=== PATIENT | female | born 1990 | race African-American/Black ===

== ENCOUNTER 2017-03-11 12:12 | Emergency (ER) | payer BC ==
[2017-03-11 12:19] VITALS: BP 118/65
== END 2017-03-11 12:50 | disposition left against medical advice (07) ==
LOC: ER 12:12
DX: Z53.21 Procedure and treatment not carried out due to patient leaving prior to being seen by health care provider (principal)

== ENCOUNTER 2017-03-14 16:18 | Emergency (ER) | payer BC, MEDICAID ==
--- NOTE | 2017-03-14 17:25 | ER Document Report ---
ED Medical Screen (RME) - General TRAVEL OUTSIDE OF THE [place] IN LAST 30 DAYS: No <OSVALDO COBOS - Last Filed: 03/14/17 17:24> <NATIVIDAD ROBERTSON - Last Filed: 03/14/17 18:21> - General Chief Complaint: Abdominal Pain Stated Complaint: ABDOMINAL PAIN Time Seen by Provider: 03/14/17 17:12 Notes: 27-year-old female with last menses 02/04/2017 presents with 1 week of lower abdominal cramping. She has had 3 positive tests at home. She is having no vaginal bleeding, vomiting, diarrhea, dysuria or hematuria. She has had some nausea. (OSVALDO COBOS) I have greeted and performed a rapid initial assessment of this patient. A comprehensive ED assessment and evaluation of the patient, analysis of test results and completion of the medical decision making process will be conducted by additional ED providers. (NATIVIDAD ROBERTSON) - Related Data Allergies/Adverse Reactions: No Known Allergies Allergy (Verified 03/14/17 17:13) Past Medical History Renal/ Medical History: Denies: Hx Peritoneal Dialysis Psychiatric Medical History: Reports: Hx Attention Deficit Hyperactivity Disorder Traumatic Medical History: Reports: Hx Fractures - Immunizations Hx Diphtheria, Pertussis, Tetanus Vaccination: Yes <OSVALDO COBOS - Last Filed: 03/14/17 17:24> Physical Exam <OSVALDO COBOS - Last Filed: 03/14/17 17:24> <NATIVIDAD ROBERTSON - Last Filed: 03/14/17 18:21> - Vital signs Vitals: Temp Pulse Resp BP Pulse Ox 98.1 F 84 20 118/72 99 03/14/17 16:45 03/14/17 16:45 03/14/17 16:45 03/14/17 16:45 03/14/17 16:45 - Notes Notes: Exam shows heart to be normal, lungs normal, no peritoneal signs (OSVALDO COBOS) Course - Laboratory Result Diagrams: 03/14/17 17:20 <NAITVIDAD ROBERTSON - Last Filed: 03/14/17 18:21> - Vital Signs Vital signs: Temp Pulse Resp BP Pulse Ox 98.1 F 84 20 118/72 99 03/14/17 16:45 03/14/17 16:45 03/14/17 16:45 03/14/17 16:45 03/14/17 16:45 - Laboratory Laboratory results interpreted by me: 03/14/17 03/14/17 17:20 17:20 WBC 10.8 H Urine Urobilinogen 2.0 H Scribe Documentation - Scribe Written by Scribe:: Yossi Alatorre 03/14/17 18:20 acting as scribe for :: [place] <NATIVIDAD ROBERTSON - Last Filed: 03/14/17 18:21>
[2017-03-14 18:08] LABS: ABSOLUTE EOSINOPHILS # (AUTO) 0.1 10^3/uL (0.0-0.6); ABSOLUTE LYMPHOCYTES (AUTO) 2.4 10^3/uL (0.5-4.7); ABSOLUTE MONOCYTES (AUTO) 0.8 10^3/uL (0.1-1.4); ABSOLUTE NEUT (AUTO) 7.5 10^3/uL (1.7-8.2); BASOPHILS % (AUTO) 0.2 % (0-2); HEMATOCRIT 40.5 % (36.0-47.0); HEMOGLOBIN 13.5 g/dL (12.0-15.5); MEAN CORPUSCULAR HEMOGLOBIN 30.8 pg (27.0-33.4); MEAN CORPUSCULAR HGB CONC 33.4 g/dL (32.0-36.0); MEAN CORPUSCULAR VOLUME 92 fl (80-97); MONOCYTES % (AUTO) 7.2 % (3-13); RED BLOOD COUNT 4.39 10^6/uL (3.72-5.28); RED CELL DISTRIBUTION WIDTH 13.5 % (11.5-14.0); SEGMENTED NEUTROPHILS % (AUTO) 69.6 % (42-78); WHITE BLOOD COUNT 10.8 10^3/uL (4.0-10.5)
[2017-03-14 18:10] LABS: APPEARANCE,URINE SLIGHTLY-CLOUDY; BILIRUBIN,URINE NEGATIVE (NEGATIVE); GLUCOSE, URINE NEGATIVE (NEGATIVE); KETONES,URINE NEGATIVE (NEGATIVE); LEUKOCYTE ESTERASE,URINE NEGATIVE (NEGATIVE); NITRITE,URINE NEGATIVE (NEGATIVE); PROTEIN,URINE NEGATIVE (NEGATIVE); URINE SPECIFIC GRAVITY 1.031
--- NOTE | 2017-03-14 18:25 | ER Document Report ---
ED GI/ - General Mode of Arrival: Ambulatory Information source: Patient TRAVEL OUTSIDE OF THE [place] IN LAST 30 DAYS: No - HPI Patient complains to provider of: Abdominal pain <YAA NAVA - Last Filed: 03/14/17 21:08> <MARIELA ZHONG - Last Filed: 03/14/17 22:36> - General Chief Complaint: Abdominal Pain Stated Complaint: ABDOMINAL PAIN Time Seen by Provider: 03/14/17 17:12 Notes: Patient is a 27 year old female that presents to the emergency department today with complaints of nausea and vomiting. Patient states she is but she is unsure how she is. Patient states her LMP was February 05. Patient states she has had mild suprapubic abdominal pain. (YAA NAVA) - Related Data Allergies/Adverse Reactions: No Known Allergies Allergy (Verified 03/14/17 17:13) Past Medical History - General Information source: Patient - Social History Smoking Status: Unknown if Ever Smoked Cigarette use (# per day): No Frequency of alcohol use: None Drug Abuse: None Lives with: Family Family History: Reviewed & Not Pertinent Patient has suicidal ideation: No Patient has homicidal ideation: No Psychiatric Medical History: Reports: Hx Attention Deficit Hyperactivity Disorder Traumatic Medical History: Reports: Hx Fractures Surgical Hx: Negative - Immunizations Hx Diphtheria, Pertussis, Tetanus Vaccination: Yes <YAA NAVA - Last Filed: 03/14/17 21:08> Review of Systems - Review of Systems Constitutional: No symptoms reported EENT: No symptoms reported Cardiovascular: No symptoms reported Respiratory: No symptoms reported Gastrointestinal: See HPI, Abdominal pain, Nausea, Vomiting Genitourinary: No symptoms reported Female Genitourinary: See HPI, Musculoskeletal: No symptoms reported Skin: No symptoms reported Hematologic/Lymphatic: No symptoms reported Neurological/Psychological: No symptoms reported -: Yes All other systems reviewed and negative <YAA NAVA - Last Filed: 03/14/17 21:08> Physical Exam <YAA NAVA - Last Filed: 03/14/17 21:08> - Vital signs Interpretation: Normal - General General appearance: Appears well, Alert - HEENT Head: Normocephalic, Atraumatic Eyes: Normal Pupils: PERRL - Respiratory Respiratory status: No respiratory distress Chest status: Nontender Breath sounds: Normal Chest palpation: Normal - Cardiovascular Rhythm: Regular Heart sounds: Normal auscultation Murmur: No - Abdominal Inspection: Normal Distension: No distension Bowel sounds: Normal Organomegaly: No organomegaly - Back Back: Normal, Nontender - Extremities General upper extremity: Normal inspection, Nontender, Normal color, Normal ROM , Normal temperature General lower extremity: Normal inspection, Nontender, Normal color, Normal ROM , Normal temperature, Normal weight bearing. No: Auor[place]'s sign - Neurological Neuro grossly intact: Yes Cognition: Normal Orientation: AAOx4 [place]ollhouse Coma Scale Eye Opening: Spontaneous [place] Coma Scale Verbal: Oriented Jana Coma Scale Motor: Obeys Commands Jana Coma Scale Total: 15 Speech: Normal Motor strength normal: LUE, RUE, LLE, RLE Sensory: Normal - Psychological Associated symptoms: Normal affect, Normal mood - Skin Skin Temperature: Warm Skin Moisture: Dry Skin Color: Normal <MARIELA ZHONG - Last Filed: 03/14/17 22:36> - Vital signs Vitals: Temp Pulse Resp BP Pulse Ox 98.1 F 84 20 118/72 99 03/14/17 16:45 03/14/17 16:45 03/14/17 16:45 03/14/17 16:45 03/14/17 16:45 - Notes Notes: Physical Exam: General: Alert, appears well. HEENT: Normocephalic. Atraumatic. PERRL. Extraocular movements intact. Oropharynx clear. Neck: Supple. Non-tender. Respiratory: No respiratory distress. Clear and equal breath sounds bilaterally. Cardiovascular: Regular rate and rhythm. Abdominal: Left pelvic tenderness with palpation. No distension. Normal Bowel Sounds. Back: Non-tender. No deformity or step off. Extremities: Moves all four extremities. Upper extremities: Normal inspection. Normal ROM. Lower extremities: Normal inspection. No edema. Normal ROM. Neurological: Normal cognition. AAOx4. Normal speech. Psychological: Normal affect. Normal Mood. Skin: Warm. Dry. Normal color. 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 No evidence for ectopic . Patient is comfortable and appears well. No urinary symptoms. She has been given a copy of her blood work and ultrasound and is to follow-up with obstetrics. Understands and agrees with plan. No pain at this time. Stable for discharge. (MARIELA ZHONG) - Vital Signs Vital signs: Temp Pulse Resp BP Pulse Ox 98.4 F 79 20 115/68 99 03/14/17 20:40 03/14/17 20:40 03/14/17 20:40 03/14/17 20:40 03/14/17 20:40 - Laboratory Laboratory results interpreted by me: 03/14/17 03/14/17 03/14/17 17:20 17:20 17:20 WBC 10.8 H Beta HCG, Quant 5729.30 H Urine Urobilinogen 2.0 H Discharge <YAA NAVA - Last Filed: 03/14/17 21:08> <MARIELA ZHONG - Last Filed: 03/14/17 22:36> - Discharge Clinical Impression: Early stage of , Pelvic pain Condition: Stable Disposition: HOME, SELF-CARE Instructions: Pelvic Pain ([facility]), ([facility]) Forms: Return to Work Referrals: [facility] [Provider Group] - Follow up as needed Scribe Attestation: 03/14/17 22:36 I personally performed the services described in the documentation, reviewed and edited the documentation which was dictated to the scribe in my presence, and it accurately records my words and actions. (MARIELA ZHONG) Scribe Documentation - Scribe Written by Yossi:: Yossi Plummer, 03/14/[id number] acting as scribe for :: Marciano <YAA NAVA - Last Filed: 03/14/17 21:08>
--- NOTE | 2017-03-14 20:07 | RADIOLOGY REPORT (SQ) ---
EXAM DESCRIPTION: U/S OB TRANSVAG W/DOPPLER COMPLETED DATE/TIME: 03/14/2017 7:48 pm REASON FOR STUDY: Pelvic pain, COMPARISON: None. TECHNIQUE: Transvaginal static and realtime grayscale images acquired of the pelvis. Additional velasquez cted spectral and color Doppler images recorded. All images stored on PACs. [facility] [place] LIMITATIONS: None. FINDINGS: UTERUS: No masses. No anomalies. GESTATIONAL SAC: Yes. YOLK SAC: Yes. POLE: No. RIGHT ADNEXA: There is a 1.7 x 2.3 x 1.5 cm cyst. No adnexal free fluid. No adnexal masses. LEFT ADNEXA: Normal ovary with normal vascular flow. No adnexal free fluid. No adnexal masses. FREE FLUID: There is minimal free fluid in the right adnexa. OTHER: There is a small hypoechoic area adjacent to the gestational sac consistent with a small subch orionic bleed. This measures 0.9 x 0.6 x 0.5 cm. IMPRESSION: Probable early intrauterine gestation. No heart activity this time. Followup beta HCG and ultrasound is recommended. Trimester of : First - 0 to 13 weeks. TECHNICAL DOCUMENTATION: JOB ID: [id number] [employer]- All Rights Reserved
[2017-03-14 20:49] VITALS: BP 115/68
== END 2017-03-14 20:40 | disposition home or self-care (01) ==
LOC: ER 16:18
DX: R10.2 Pelvic and perineal pain (principal); R10.9 Unspecified abdominal pain; R11.2 Nausea with vomiting, unspecified; Z33.1 Pregnant state, incidental
CPT/HCPCS: 36415; 76817; 81001; 84702; 85025; 93976; 99284

== ENCOUNTER 2017-04-06 16:45 | Emergency (ER) | payer BC, MEDICAID ==
[2017-04-06 17:34] LABS: ABSOLUTE EOSINOPHILS # (AUTO) 0.1 10^3/uL (0.0-0.6); ABSOLUTE LYMPHOCYTES (AUTO) 2.1 10^3/uL (0.5-4.7); ABSOLUTE MONOCYTES (AUTO) 0.7 10^3/uL (0.1-1.4); BASOPHILS % (AUTO) 0.2 % (0-2); HEMATOCRIT 38.9 % (36.0-47.0); HEMOGLOBIN 12.9 g/dL (12.0-15.5); HGB HCT DIFFERENCE -0.2; LYMPHOCYTES % (AUTO) 18.9 % (13-45); MEAN CORPUSCULAR HEMOGLOBIN 30.7 pg (27.0-33.4); MEAN CORPUSCULAR HGB CONC 33.2 g/dL (32.0-36.0); MEAN CORPUSCULAR VOLUME 92 fl (80-97); MONOCYTES % (AUTO) 6.2 % (3-13); RED BLOOD COUNT 4.21 10^6/uL (3.72-5.28); RED CELL DISTRIBUTION WIDTH 13.6 % (11.5-14.0); SEGMENTED NEUTROPHILS % (AUTO) 73.7 % (42-78); WHITE BLOOD COUNT 10.9 10^3/uL (4.0-10.5)
[2017-04-06 17:46] LABS: ALANINE AMINOTRANSFERASE 27 U/L (9-52); ALBUMIN 4.1 g/dL (3.5-5.0); ALKALINE PHOSPHATASE 76 U/L (38-126); ANION GAP 11 (5-19); APPEARANCE,URINE SLIGHTLY-CLOUDY; ASPARTATE AMINO TRANSFERASE 20 U/L (14-36); BILIRUBIN,DIRECT 0.3 mg/dL (0.0-0.4); BILIRUBIN,TOTAL 0.4 mg/dL (0.2-1.3); BILIRUBIN,URINE NEGATIVE (NEGATIVE); BLOOD UREA NITROGEN 9 mg/dL (7-20); CALCIUM 9.1 mg/dL (8.4-10.2); CARBON DIOXIDE 23 mmol/L (22-30); CHLORIDE 103 mmol/L (98-107); CREATININE RESULT 0.71 mg/dL (0.52-1.25); GLUCOSE 85 mg/dL (75-110); GLUCOSE, URINE NEGATIVE (NEGATIVE); KETONES,URINE NEGATIVE (NEGATIVE); LEUKOCYTE ESTERASE,URINE NEGATIVE (NEGATIVE); NITRITE,URINE NEGATIVE (NEGATIVE); PROTEIN,URINE NEGATIVE (NEGATIVE); SODIUM 136.6 mmol/L (137-145); URINE SPECIFIC GRAVITY 1.018; UROBILINOGEN,URINE NEGATIVE mg/dL (<2.0)
--- NOTE | 2017-04-06 19:03 | RADIOLOGY REPORT (SQ) ---
EXAM DESCRIPTION: U/S OB TRANSVAG W/DOPPLER COMPLETED DATE/TIME: 04/06/2017 6:51 pm REASON FOR STUDY: abd pain preg COMPARISON: None. TECHNIQUE: Transvaginal static and realtime grayscale images acquired of the pelvis. Additional velasquez cted spectral and color Doppler images recorded. All images stored on PACs. bHCG: Not available. LIMITATIONS: None. FINDINGS: FETUS: Living intrauterine . EGA: 8 week 6 day. ELMER: 11/10/2017. FHR: 157 beats per minute. SUBCHORIONIC BLEED: Yes. SIZE OF BLEED: 0.3 x 1.2 x 1.9 cm. UTERUS: No masses. No anomalies. CERVICAL LENGTH: 3.5 cm. Closed. RIGHT ADNEXA: Normal ovary with normal vascular flow. No adnexal free fluid. Simple cyst(s) measuring 2.0 cm. LEFT ADNEXA: Ovary not identified. No adnexal free fluid. No adnexal masses. FREE FLUID: None. OTHER: No other significant finding. IMPRESSION: LIVING INTRAUTERINE . EGA 8 WEEK 6 DAY. Trimester of : First - 0 to 13 weeks. TECHNICAL DOCUMENTATION: JOB ID: [id number] [employer]- All Rights Reserved
--- NOTE | 2017-04-06 19:17 | ER Document Report ---
ED General - General Chief Complaint: Pelvic Pain Stated Complaint: CRAMPING/ Time Seen by Provider: 04/06/17 16:56 TRAVEL OUTSIDE OF THE [place] IN LAST 30 DAYS: No - Related Data Allergies/Adverse Reactions: latex Allergy (Verified 04/06/17 16:51) Past Medical History - General Last Menstrual Period: 02/03/17 - Social History Smoking Status: Former Smoker Chew tobacco use (# tins/day): No Frequency of alcohol use: None Drug Abuse: None Family History: Reviewed & Not Pertinent Patient has suicidal ideation: No Patient has homicidal ideation: No Renal/ Medical History: Denies: Hx Peritoneal Dialysis Psychiatric Medical History: Reports: Hx Attention Deficit Hyperactivity Disorder Traumatic Medical History: Reports: Hx Fractures - Immunizations Hx Diphtheria, Pertussis, Tetanus Vaccination: Yes Physical Exam - Vital signs Vitals: Temp Pulse Resp BP Pulse Ox 99 F 70 24 H 127/74 H 99 04/06/17 16:51 04/06/17 16:51 04/06/17 16:51 04/06/17 16:51 04/06/17 16:51 Course - Vital Signs Vital signs: Temp Pulse Resp BP Pulse Ox 99 F 70 24 H 127/74 H 99 04/06/17 16:51 04/06/17 16:51 04/06/17 16:51 04/06/17 16:51 04/06/17 16:51 - Laboratory Result Diagrams: 04/06/17 17:13 04/06/17 17:13 Laboratory results interpreted by me: 04/06/17 04/06/17 17:13 17:13 WBC 10.9 H Sodium 136.6 L Beta HCG, Quant 987304.00 H Discharge - Discharge Clinical Impression: Qualifiers: Weeks of gestation: 8 weeks Qualified Code(s): Z3A.08 - 8 weeks gestation of Abdominal pain during Qualifiers: Trimester: first trimester Qualified Code(s): O26.891 - Other specified related conditions, first trimester; R10.9 - Unspecified abdominal pain Condition: Good Disposition: HOME, SELF-CARE Instructions: Abdominal Pain ([facility]), Pelvic Pain in ([facility]) Additional Instructions: Continue your vitamins follow-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 He may take the Reglan provided for very bad nausea. For nausea and vomiting during I recomment: Start with 10-12.5 mg of pyridoxine (vitamin B6) three times a day for 2 days. If not fully effective, Increase to 12.5 mg of pyridoxine four times a day for 2 days. If not fully effective, Increase to 25 mg of pyridoxine three times a day for 2 days. If not fully effective, Continue 25 mg pyridoxine 3 times a day, and add 12.5 mg of doxylamine before bedtime each day for 2 days. If not fully effective, Continue 25 mg pyridoxine 3 times a day, and take 12.5 mg of doxylamine twice a day. If not fully effective, Continue 25 mg pyridoxine 3 times a day, and take 12.5 mg of doxylamine three times a day. If not fully effective, Continue 25 mg pyridoxine 3 times a day, and 12.5 mg of doxylamine 3 times a day , while adding Emetrol, one to two tablespoons (15-30 cc) taken once or twice a day as needed. (Emetrol is an [id number] mixture of sugar syrups and phosphoric acid [phosphorylated carbohydrate solution]) that acts by soothing the actual wall of the gastrointestinal tract). If not fully effective, Consult with your doctor. Prescriptions: Metoclopramide HCl [Reglan] 5 mg PO Q6 #20 tablet Forms: Return to Work
--- NOTE | 2017-04-06 19:19 | ER Document Report ---
ED General - General Chief Complaint: Pelvic Pain Stated Complaint: CRAMPING/ Time Seen by Provider: 04/06/17 16:56 TRAVEL OUTSIDE OF THE [place] IN LAST 30 DAYS: No - HPI Patient complains to provider of: Abdominal pain in Notes: Patient coming in for evaluation of abdominal pain and . Patient is a with no comp occasions and her prior pregnancies states that she is having abdominal cramping. Patient states that she is approximately 6-8 weeks . Patient states compliance with vitamins. Denies any fevers chills nausea vomiting dysuria - Related Data Allergies/Adverse Reactions: latex Allergy (Verified 04/06/17 16:51) Past Medical History - General Last Menstrual Period: 02/03/17 - Social History Smoking Status: Former Smoker Chew tobacco use (# tins/day): No Frequency of alcohol use: None Drug Abuse: None Family History: Reviewed & Not Pertinent Patient has suicidal ideation: No Patient has homicidal ideation: No Renal/ Medical History: Denies: Hx Peritoneal Dialysis Psychiatric Medical History: Reports: Hx Attention Deficit Hyperactivity Disorder Traumatic Medical History: Reports: Hx Fractures - Immunizations Hx Diphtheria, Pertussis, Tetanus Vaccination: Yes Review of Systems - Review of Systems Constitutional: No symptoms reported EENT: No symptoms reported Cardiovascular: No symptoms reported Respiratory: No symptoms reported Gastrointestinal: Abdominal pain Genitourinary: No symptoms reported Female Genitourinary: No symptoms reported Musculoskeletal: No symptoms reported Skin: No symptoms reported Hematologic/Lymphatic: No symptoms reported Neurological/Psychological: No symptoms reported -: Yes All other systems reviewed and negative Physical Exam - Vital signs Vitals: Temp Pulse Resp BP Pulse Ox 99 F 70 24 H 127/74 H 99 04/06/17 16:51 04/06/17 16:51 04/06/17 16:51 04/06/17 16:51 04/06/17 16:51 Interpretation: Normal - General General appearance: Appears well, Alert - HEENT Head: Normocephalic, Atraumatic Eyes: Normal Pupils: PERRL - Respiratory Respiratory status: No respiratory distress Chest status: Nontender Breath sounds: Normal Chest palpation: Normal - Cardiovascular Rhythm: Regular Heart sounds: Normal auscultation Murmur: No - Abdominal Inspection: Normal Distension: No distension Bowel sounds: Normal Tenderness: Nontender Organomegaly: No organomegaly - Back Back: Normal, Nontender - Extremities General upper extremity: Normal inspection, Nontender, Normal color, Normal ROM , Normal temperature General lower extremity: Normal inspection, Nontender, Normal color, Normal ROM , Normal temperature, Normal weight bearing. No: Aurora's sign - Neurological Neuro grossly intact: Yes Cognition: Normal Orientation: AAOx4 Jana Coma Scale Eye Opening: Spontaneous Dewey Coma Scale Verbal: Oriented Dewey Coma Scale Motor: Obeys Commands Jana Coma Scale Total: 15 Speech: Normal Motor strength normal: LUE, RUE, LLE, RLE Sensory: Normal - Psychological Associated symptoms: Normal affect, Normal mood - Skin Skin Temperature: Warm Skin Moisture: Dry Skin Color: Normal Course - Re-evaluation Re-evalutation: 04/06/17 19:19 Ultrasound confirms IUP with a small sub-chorionic bleed. Lab was unrevealing critical pathology. Patient will be discharged home to follow-up with her primary care physician. The patient presents with abdominal pain without signs of peritonitis or other life-threatening or serious etiology. The patient appears stable for discharge and has been instructed to return immediately if the symptoms worsen in any way, or in 8-12hr if not improved for re-evaluation. The patient has been instructed to return if the symptoms worsen or change in any way. - Vital Signs Vital signs: Temp Pulse Resp BP Pulse Ox 99 F 70 24 H 127/74 H 99 04/06/17 16:51 04/06/17 16:51 04/06/17 16:51 04/06/17 16:51 04/06/17 16:51 - Laboratory Result Diagrams: 04/06/17 17:13 04/06/17 17:13 Laboratory results interpreted by me: 04/06/17 04/06/17 17:13 17:13 WBC 10.9 H Sodium 136.6 L Beta HCG, Quant 654754.00 H Discharge - Discharge Clinical Impression: Qualifiers: Weeks of gestation: 8 weeks Qualified Code(s): Z3A.08 - 8 weeks gestation of Abdominal pain during Qualifiers: Trimester: first trimester Qualified Code(s): O26.891 - Other specified related conditions, first trimester Condition: Good Disposition: HOME, SELF-CARE Instructions: Abdominal Pain ([facility]), Pelvic Pain in ([facility]) Additional Instructions: Continue your 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 He may take the Reglan provided for very bad nausea. For nausea and vomiting during I recomment: Start with 10-12.5 mg of pyridoxine (vitamin B6) three times a day for 2 days. If not fully effective, Increase to 12.5 mg of pyridoxine four times a day for 2 days. If not fully effective, Increase to 25 mg of pyridoxine three times a day for 2 days. If not fully effective, Continue 25 mg pyridoxine 3 times a day, and add 12.5 mg of doxylamine before bedtime each day for 2 days. If not fully effective, Continue 25 mg pyridoxine 3 times a day, and take 12.5 mg of doxylamine twice a day. If not fully effective, Continue 25 mg pyridoxine 3 times a day, and take 12.5 mg of doxylamine three times a day. If not fully effective, Continue 25 mg pyridoxine 3 times a day, and 12.5 mg of doxylamine 3 times a day , while adding Emetrol, one to two tablespoons (15-30 cc) taken once or twice a day as needed. (Emetrol is an [id number]-xgibjii mixture of sugar syrups and phosphoric acid [phosphorylated carbohydrate solution]) that acts by soothing the actual wall of the gastrointestinal tract). If not fully effective, Consult with your doctor. Prescriptions: Metoclopramide HCl [Reglan] 5 mg PO Q6 #20 tablet Forms: Return to Work
[2017-04-06 19:20] VITALS: BP 127/72
== END 2017-04-06 19:15 | disposition home or self-care (01) ==
LOC: ER 16:45
DX: O26.891 Other specified pregnancy related conditions, first trimester (principal); R10.9 Unspecified abdominal pain; O20.8 Other hemorrhage in early pregnancy; Z3A.08 8 weeks gestation of pregnancy; Z79.899 Other long term (current) drug therapy; Z87.891 Personal history of nicotine dependence
CPT/HCPCS: 36415; 76817; 80053; 81001; 84702; 85025; 93976; 99284

== ENCOUNTER → 2017-04-20 | Outpatient (CLI) | payer MEDICAID ==
--- NOTE | 2017-04-20 17:44 | RADIOLOGY REPORT (SQ) ---
EXAM DESCRIPTION: U/S [id number] TRNABD 1GES W/ODOP COMPLETED DATE/TIME: 04/20/2017 4:48 pm REASON FOR STUDY: ENCOUNTER FOR SUPERVISON OF OTHER NORMAL PREGANCNY, FIRST TRIMESTER Z34.[address] SUPRVSN OF NORMAL , FIRST TRIM COMPARISON: None. TECHNIQUE: Transabdominal static and realtime grayscale images acquired of the pelvis. Additional se lected spectral and color Doppler images recorded. All images stored on PACs. bHCG: Not applicable. LIMITATIONS: None. FINDINGS: FETUS: EGA: 11 week 2 day. ELMER: 11/07/2017. EFW: Not applicable. FHR: 178 beats per minute. PAULY: Adequate amount. CERVICAL LENGTH: 3.8 cm. Closed. UTERUS: No masses. RIGHT ADNEXA: Normal ovary with normal vascular flow. No adnexal free fluid. 2.1 cm simple cyst. LEFT ADNEXA: Ovary not identified. No adnexal free fluid. No adnexal masses. FREE FLUID: None. OTHER: No other significant finding. IMPRESSION: LIVING INTRAUTERINE . ESTIMATED GESTATIONAL AGE:11 WEEK 2 DAY. Trimester of : First trimester - 0 to 13 weeks. TECHNICAL DOCUMENTATION: JOB ID: [id number] [employer]- All Rights Reserved
== END ==
LOC: RAD 15:13
PROVIDERS: ATTEND Nurse Practitioner Women's Health
DX: Z34.81 Encounter for supervision of other normal pregnancy, first trimester (principal)
CPT/HCPCS: 76801

== ENCOUNTER 2017-05-11 12:14 | Emergency (ER) | payer BC, MEDICAID ==
[2017-05-11] MEDS ORDERED: METOCLOPRAMIDE HCL INJ/PF 10 MG/2 ML SDV IV ONE (12:41)
[2017-05-11] MEDS ORDERED: ACETAMINOPHEN 325 MG TABLET PO ONE (12:41)
[2017-05-11] MEDS ORDERED: DIPHENHYDRAMINE HCL 50 MG/ML VIAL IV ONE (12:41)
[2017-05-11] MEDS ORDERED: NORMAL SALINE 1000 ML 1,000 ML IV ONE (12:41)
--- NOTE | 2017-05-11 12:43 | ER Document Report ---
ED Headache - General Chief Complaint: Headache Stated Complaint: NECK PAIN,HEADACHE Time Seen by Provider: 05/11/17 12:30 Mode of Arrival: Ambulatory Information source: Patient Notes: Patient presents complaining of high pain off and on that she describes as a pressure for the past year. Patient reports pain to the lateral sides of her neck for the past 2 months and reports constant headache for the past month. Patient states that she has taken Tylenol at home without improvement of her symptoms. Patient does report some light sensitivity and nausea. Patient denies any fever, vomiting, or head injury. Patient denies any history of IV drug use. Patient states that she has seen her blow machine tender starch spraying regarding the pressure sensation in her eyes that she has had for the past year and she was told she had a normal exam with normal intraocular pressure. Patient states she simply got tired of her symptoms today which prompted her to come in. Patient is currently 4 months and followed by [facility]. TRAVEL OUTSIDE OF THE [place] IN LAST 30 DAYS: No - HPI Patient complains to provider of: Headache Onset: Other - 1 month Onset was: Gradual Timing: Still present Quality of pain: Achy Pain Level: 3 Associated symptoms: Photophobia. 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 denies: Fever EENT: Eye pain Cardiovascular: No symptoms reported. denies: Dizziness Respiratory: No symptoms reported. denies: Cough, Short of breath Gastrointestinal: No symptoms reported. denies: Vomiting Genitourinary: No symptoms reported Female Genitourinary: No symptoms reported Musculoskeletal: Neck pain Skin: No symptoms reported. denies: Rash Hematologic/Lymphatic: No symptoms reported Neurological/Psychological: Headaches. denies: Weakness Physical Exam - Vital signs Vitals: Temp Pulse Resp BP Pulse Ox 98.4 F 80 14 123/70 99 05/11/17 12:16 05/11/17 12:16 05/11/17 12:16 05/11/17 12:16 05/11/17 12:16 - General General appearance: Appears well, Alert In distress: None - HEENT Head: Normocephalic, Atraumatic Eyes: Normal Extraocular movements intact: Yes Eyelashes: Normal Pupils: PERRL Ears: Normal External canal: Normal Tympanic membrane: Normal Nasal: Normal Mouth/Lips: Normal Mucous membranes: Normal Neck: Supple, Other - bilat SCM muscle tenderness/spasm. No: Lymphadenopathy, Meningismus - Respiratory Respiratory status: No respiratory distress Chest status: Nontender Breath sounds: Normal - Cardiovascular Rhythm: Regular Heart sounds: S1 appreciated, S2 appreciated Murmur: No - Back Back: Normal, Nontender. No: Vertebra tenderness - Extremities General upper extremity: Normal inspection, Normal ROM General lower extremity: Normal inspection, Normal ROM - Neurological Neuro grossly intact: Yes Cognition: Normal Orientation: AAOx4 Jana Coma Scale Eye Opening: Spontaneous Jana Coma Scale Verbal: Oriented [place] Coma Scale Motor: Obeys Commands Jana Coma Scale Total: 15 Speech: Normal Cranial nerves: Normal Cerebellar coordination: Normal, Heel-savage, Finger-nose rhombey. No: Gait ataxia Motor strength normal: LUE, RUE, LLE, RLE - Psychological Associated symptoms: Normal affect, Normal mood - Skin Skin Temperature: Warm Skin Moisture: Dry Skin Color: Normal Course - Re-evaluation Re-evalutation: 05/11/17 15:02 Resting with eyes closed, arouses easily to voice. Patient denies any headache pain at this time. - Vital Signs Vital signs: Temp Pulse Resp BP Pulse Ox 97.5 F 101 H 20 114/75 100 05/11/17 13:18 05/11/17 13:38 05/11/17 13:18 05/11/17 13:38 05/11/17 13:38 - Diagnostic Test Radiology reviewed: Reports reviewed Discharge - Discharge Clinical Impression: Qualifiers: Weeks of gestation: unspecified Qualified Code(s): Z34.90 - Encounter for supervision of normal , unspecified, unspecified trimester Headache Qualifiers: Headache type: unspecified Headache chronicity pattern: unspecified pattern Intractability: not intractable Qualified Code(s): R51 - Headache Condition: Stable Disposition: HOME, SELF-CARE Instructions: Use of Diphenhydramine, Reglan ([facility]), Headache ([facility]) Additional Instructions: Return immediately for any new or worsening symptoms Followup with your primary care provider, call tomorrow to make a followup appointment Follow-up with your primary doctor for further evaluation of chronic daily headaches Tylenol [id number] as directed for pain relief Forms: Return to Work Referrals: ANITA MURPHY MD [Primary Care Provider] - Follow up tomorrow
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
[2017-05-11 15:22] VITALS: BP 114/75
== END 2017-05-11 15:22 | disposition home or self-care (01) ==
LOC: ER 12:14
DX: Z34.90 Encounter for supervision of normal pregnancy, unspecified, unspecified trimester (principal); R51 Headache; M54.2 Cervicalgia
CPT/HCPCS: 99284; 96361; 96374; 96375; 70450; J1200; J2765; J7030

== ENCOUNTER 2017-06-09 19:18 | Emergency (ER) | payer OTHER, BC, MEDICAID ==
[2017-06-09] MEDS ORDERED: ACETAMINOPHEN 325 MG TABLET PO ONE (20:28)
[2017-06-09] MEDS ORDERED: ACETAMINOPHEN 325 MG TABLET ONE (20:33)
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
== END 2017-06-09 21:38 | disposition home or self-care (01) ==
LOC: ER 19:18
DX: O9A.212 Injury, poisoning and certain other consequences of external causes complicating pregnancy, second trimester (principal); S69.91XA Unspecified injury of right wrist, hand and finger(s), initial encounter; V49.40XA Driver injured in collision with unspecified motor vehicles in traffic accident, initial encounter; O99.89 Other specified diseases and conditions complicating pregnancy, childbirth and the puerperium; M79.641 Pain in right hand; Z3A.18 18 weeks gestation of pregnancy; Z91.040 Latex allergy status
CPT/HCPCS: 99283

== ENCOUNTER 2017-09-13 17:53 | Outpatient (CLI) | payer BC ==
[2017-09-13 18:20] LABS: AMORPHOUS SEDIMENT,URINE TRACE /HPF; APPEARANCE,URINE SLIGHTLY-CLOUDY; BILIRUBIN,URINE NEGATIVE (NEGATIVE); GLUCOSE, URINE 50 mg/dL (NEGATIVE); KETONES,URINE NEGATIVE (NEGATIVE); LEUKOCYTE ESTERASE,URINE TRACE (NEGATIVE); NITRITE,URINE NEGATIVE (NEGATIVE); PROTEIN,URINE NEGATIVE (NEGATIVE)
[2017-09-13 18:33] LABS: URINE BARBITURATES SCREEN NEGATIVE; URINE METHADONE SCREEN NEGATIVE; URINE OPIATES LOW NEGATIVE; URINE PHENCYCLIDINE SCREEN NEGATIVE
== END 2017-09-13 18:59 | disposition home or self-care (01) ==
LOC: LC 17:53
PROVIDERS: ATTEND Obstetrics & Gynecology
PROC: 4A1HXCZ Monitoring of Products of Conception, Cardiac Rate, External Approach (ICD-10-PCS; principal; 2017-09-13)
DX: O47.03 False labor before 37 completed weeks of gestation, third trimester (principal); Z3A.31 31 weeks gestation of pregnancy
CPT/HCPCS: 80307; 81001

== ENCOUNTER 2017-10-24 18:02 | Outpatient (CLI) | payer MEDICAID ==
[2017-10-24 18:33] LABS: APPEARANCE,URINE SLIGHTLY-CLOUDY; BILIRUBIN,URINE NEGATIVE (NEGATIVE); COLOR,URINE YELLOW; GLUCOSE, URINE 50 mg/dL (NEGATIVE); KETONES,URINE NEGATIVE (NEGATIVE); LEUKOCYTE ESTERASE,URINE MODERATE (NEGATIVE); NITRITE,URINE NEGATIVE (NEGATIVE); PROTEIN,URINE NEGATIVE (NEGATIVE); URINE SPECIFIC GRAVITY 1.008
[2017-10-24 18:36] LABS: AMNISURE (ROM) NEGATIVE (NEGATIVE)
[2017-10-24 18:48] LABS: URINE AMPHETAMINES SCREEN NEGATIVE; URINE BARBITURATES SCREEN NEGATIVE; URINE BENZODIAZEPINES SCREEN NEGATIVE; URINE COCAINE SCREEN NEGATIVE; URINE MARIJUANA (THC) SCREEN NEGATIVE; URINE METHADONE SCREEN NEGATIVE; URINE PHENCYCLIDINE SCREEN NEGATIVE
--- NOTE | 2017-10-24 18:49 | Non Stress Test Report ---
Non Stress Test Datetime Report Generated by CPN: 10/24/2017 18:48 DEMOGRAPHIC EGA NST: 37.4 INDICATION Indication for Study: Ordered by Provider MONITORING Monitor Explained: Monitor Explained; Test Explained; Patient Verbalized Understanding Time on Monitor: 10/24/2017 18:17 Time off Monitor: 10/24/2017 18:45 NST Duration: 28 NST INTERVENTIONS NST Interventions: PO Hydration Physician Notified NST: Dr. Jimenez BABY A: [id number] BABY A Movement : Present Contraction Frequency : 1 FHR Baseline : 145 Accelerations : 15X15 Decelerations : None Variability : Moderate 6-25bpm NST Review: Meets Criteria for Reactive NST NST Review and Verified By : Beverly Oconnor RN NST Results: Reactive NST REPORT Report Trigger: Send Report
== END 2017-10-24 18:53 | disposition home or self-care (01) ==
LOC: LC 18:02
PROVIDERS: ATTEND Student in an Organized Health Care Education/Training Program
PROC: 4A1HXCZ Monitoring of Products of Conception, Cardiac Rate, External Approach (ICD-10-PCS; principal; 2017-10-24)
DX: O47.1 False labor at or after 37 completed weeks of gestation (principal); Z3A.37 37 weeks gestation of pregnancy
CPT/HCPCS: 59025; 80307; 81001; 84112

== ENCOUNTER 2017-10-25 17:33 | Outpatient (CLI) | payer MEDICAID ==
[2017-10-25 18:12] LABS: AMNISURE (ROM) NEGATIVE (NEGATIVE)
[2017-10-25 18:12] LABS: APPEARANCE,URINE CLOUDY; BILIRUBIN,URINE NEGATIVE (NEGATIVE); COLOR,URINE YELLOW; GLUCOSE, URINE 50 mg/dL (NEGATIVE); KETONES,URINE NEGATIVE (NEGATIVE); LEUKOCYTE ESTERASE,URINE LARGE (NEGATIVE); NITRITE,URINE NEGATIVE (NEGATIVE); PROTEIN,URINE NEGATIVE (NEGATIVE); URINE SPECIFIC GRAVITY 1.015
[2017-10-25 18:28] LABS: URINE AMPHETAMINES SCREEN NEGATIVE; URINE BARBITURATES SCREEN NEGATIVE; URINE BENZODIAZEPINES SCREEN NEGATIVE; URINE COCAINE SCREEN NEGATIVE; URINE MARIJUANA (THC) SCREEN NEGATIVE; URINE METHADONE SCREEN NEGATIVE; URINE PHENCYCLIDINE SCREEN NEGATIVE
--- NOTE | 2017-10-25 19:30 | Non Stress Test Report ---
Non Stress Test Datetime Report Generated by CPN: 10/25/2017 19:29 DEMOGRAPHIC EGA NST: 37.5 INDICATION Indication for Study: Ordered by Provider MONITORING Monitor Explained: Monitor Explained; Test Explained; Patient Verbalized Understanding Time on Monitor: 10/25/2017 17:52 Time off Monitor: 10/25/2017 18:54 NST Duration: 62 NST INTERVENTIONS NST Interventions: PO Hydration; Reposition Patient Physician Notified NST: A.Emmel, CNM BABY A: [id number] BABY A Movement : Present Contraction Frequency : x1 FHR Baseline : 145 Accelerations : 15X15 Decelerations : None Variability : Moderate 6-25bpm NST Review: Meets Criteria for Reactive NST NST Review and Verified By : Krishna Diallo RN NST Results: Reactive NST REPORT Report Trigger: Send Report
== END 2017-10-25 19:02 | disposition home or self-care (01) ==
LOC: LC 17:33
PROVIDERS: ATTEND Obstetrics & Gynecology Gynecology
PROC: 4A1HXCZ Monitoring of Products of Conception, Cardiac Rate, External Approach (ICD-10-PCS; principal; 2017-10-25)
DX: O47.1 False labor at or after 37 completed weeks of gestation (principal); Z3A.37 37 weeks gestation of pregnancy
CPT/HCPCS: 59025; 80307; 81005; 84112

== ENCOUNTER 2017-10-29 20:31 | Outpatient (CLI) | payer MEDICAID ==
[2017-10-29 21:08] LABS: APPEARANCE,URINE CLEAR; BILIRUBIN,URINE NEGATIVE (NEGATIVE); COLOR,URINE YELLOW; GLUCOSE, URINE NEGATIVE (NEGATIVE); KETONES,URINE NEGATIVE (NEGATIVE); LEUKOCYTE ESTERASE,URINE NEGATIVE (NEGATIVE); NITRITE,URINE NEGATIVE (NEGATIVE); PROTEIN,URINE NEGATIVE (NEGATIVE); URINE SPECIFIC GRAVITY 1.008; UROBILINOGEN,URINE NEGATIVE mg/dL (<2.0)
[2017-10-29 21:24] LABS: URINE AMPHETAMINES SCREEN NEGATIVE; URINE BARBITURATES SCREEN NEGATIVE; URINE BENZODIAZEPINES SCREEN NEGATIVE; URINE COCAINE SCREEN NEGATIVE; URINE MARIJUANA (THC) SCREEN NEGATIVE; URINE METHADONE SCREEN NEGATIVE; URINE PHENCYCLIDINE SCREEN NEGATIVE
== END 2017-10-29 21:58 | disposition home or self-care (01) ==
LOC: LC 20:31
PROVIDERS: ATTEND Student in an Organized Health Care Education/Training Program
PROC: 4A1HXCZ Monitoring of Products of Conception, Cardiac Rate, External Approach (ICD-10-PCS; principal; 2017-10-29)
DX: O47.1 False labor at or after 37 completed weeks of gestation (principal); R11.2 Nausea with vomiting, unspecified; Z3A.38 38 weeks gestation of pregnancy
CPT/HCPCS: 80307; 81001

== ENCOUNTER 2017-10-30 21:52 | Inpatient (IN) | payer MEDICAID ==
--- NOTE | 2017-10-30 21:55 | Non Stress Test Report ---
Non Stress Test Datetime Report Generated by CPN: 10/30/2017 21:55 DEMOGRAPHIC EGA NST: 38.2 INDICATION Indication for Study: Ordered by Provider; Other Indication for Study (NST) Other: LC MONITORING Monitor Explained: Monitor Explained; Test Explained; Patient Verbalized Understanding Time on Monitor: 10/29/2017 20:50 NST INTERVENTIONS Physician Notified NST: Dr Jimenez BABY A: [id number] BABY A Movement : Present; Increased Contraction Frequency : 11 Accelerations : 15X15 Decelerations : None Variability : Moderate 6-25bpm NST Review: Meets Criteria for Reactive NST NST Review and Verified By : ty marion NST Results: Reactive NST REPORT Report Trigger: Send Report
[2017-10-30 22:26] LABS: APPEARANCE,URINE SLIGHTLY-CLOUDY; BILIRUBIN,URINE NEGATIVE (NEGATIVE); COLOR,URINE YELLOW; GLUCOSE, URINE NEGATIVE (NEGATIVE); KETONES,URINE 20 mg/dL (NEGATIVE); LEUKOCYTE ESTERASE,URINE SMALL (NEGATIVE); NITRITE,URINE NEGATIVE (NEGATIVE); PROTEIN,URINE NEGATIVE (NEGATIVE); URINE SPECIFIC GRAVITY 1.011
[2017-10-30 22:43] LABS: URINE AMPHETAMINES SCREEN NEGATIVE; URINE BARBITURATES SCREEN NEGATIVE; URINE BENZODIAZEPINES SCREEN NEGATIVE; URINE COCAINE SCREEN NEGATIVE; URINE MARIJUANA (THC) SCREEN NEGATIVE; URINE METHADONE SCREEN NEGATIVE; URINE PHENCYCLIDINE SCREEN NEGATIVE
[2017-10-30] MEDS ORDERED: PENICILLIN G-K 5 MILLION UNIT VIAL IV ONE (23:00)
[2017-10-30] MEDS ORDERED: EPHEDRINE SULFATE INJ 50 MG/1 ML AMPULE ONE (23:21)
[2017-10-30] MEDS ORDERED: MISOPROSTOL 0.2 MG TABLET ONE (23:21)
[2017-10-30] MEDS ORDERED: FENTANYL/BUPIVACAINE/NS/PF 200 MCG/100 ML RTUINJ EPI ONE (23:21)
[2017-10-30] MEDS ORDERED: OXYTOCIN/NORMAL SALINE 20 UNIT/1,000 ML RTUINJ ONE (23:21)
[2017-10-30] MEDS ORDERED: BUPIVACAINE HCL 0.25 % INJ/PF (2.5 MG/1 ML) 30 ML VIAL ONE (23:21)
[2017-10-30] MEDS ORDERED: LIDOCAINE 1% INJ-PF (10 MG/ML) 30 ML SDV ONE (23:21)
[2017-10-30] MEDS ORDERED: PENICILLIN G-K 5 MILLION UNIT VIAL ONE (23:22)
[2017-10-30 23:55] LABS: ABSOLUTE BASOPHILS # (AUTO) 0.1 10^3/uL (0.0-0.2); ABSOLUTE LYMPHOCYTES (AUTO) 1.4 10^3/uL (0.5-4.7); ABSOLUTE MONOCYTES (AUTO) 1.1 10^3/uL (0.1-1.4); ABSOLUTE NEUT (AUTO) 12.2 10^3/uL (1.7-8.2); BASOPHILS % (AUTO) 0.5 % (0-2); EOSINOPHILS % (AUTO) 0.1 % (0-6); HEMATOCRIT 37.9 % (36.0-47.0); HEMOGLOBIN 12.6 g/dL (12.0-15.5); LYMPHOCYTES % (AUTO) 9.7 % (13-45); MEAN CORPUSCULAR HEMOGLOBIN 29.9 pg (27.0-33.4); MEAN CORPUSCULAR HGB CONC 33.3 g/dL (32.0-36.0); MEAN CORPUSCULAR VOLUME 90 fl (80-97); MONOCYTES % (AUTO) 7.3 % (3-13); PLATELET COUNT 139 10^3/uL (150-450); RED BLOOD COUNT 4.23 10^6/uL (3.72-5.28); SEGMENTED NEUTROPHILS % (AUTO) 82.4 % (42-78); TOTAL CELLS COUNTED % (AUTO) 100 %; WHITE BLOOD COUNT 14.8 10^3/uL (4.0-10.5)
[2017-10-31] MEDS ORDERED: PENICILLIN G-K 5 MILLION UNIT VIAL ONE (02:55)
[2017-10-31] MEDS ORDERED: PENICILLIN G-K 5 MILLION UNIT VIAL IV SCH (03:15)
[2017-10-31] MEDS ORDERED: PENICILLIN G-K 5 MILLION UNIT VIAL IV PRN (03:29)
[2017-10-31] MEDS ORDERED: PENICILLIN G POTASSIUM 2,500,000 UNIT in DEXTROSE 5%-WATER 50 ML IV SCH (03:30)
[2017-10-31] MEDS ORDERED: DEXTROSE 5%-LACTATED RINGERS 1,000 ML IV ONE (04:09)
[2017-10-31] MEDS ORDERED: ZOLPIDEM TARTRATE 5 MG TABLET PO PRN (06:59)
[2017-10-31] MEDS ORDERED: ACETAMINOPHEN WITH CODEINE #3 TABLET PO PRN ×2 (06:59)
[2017-10-31] MEDS ORDERED: ACETAMINOPHEN 650 MG SUPP.RECT PR PRN (06:59)
[2017-10-31] MEDS ORDERED: PROMETHAZINE HCL INJ 25 MG/1 ML VIAL IV PRN (06:59)
[2017-10-31] MEDS ORDERED: PSEUDOEPHEDRINE HCL 30 MG TABLET PO PRN (06:59)
[2017-10-31] MEDS ORDERED: NA PHOS,M-B/NA PHOS,DI-BA (ADULT) 133 ML ENEMA PR PRN (06:59)
[2017-10-31] MEDS ORDERED: DIBUCAINE 1% OINTMENT 28 GM TP PRN (06:59)
[2017-10-31] MEDS ORDERED: BENZOCAINE/MENTHOL AEROSOL SPRAY 56 ML TOP PRN (06:59)
[2017-10-31] MEDS ORDERED: DIPHENHYDRAMINE HCL 25 MG CAPSULE PO PRN (06:59)
[2017-10-31] MEDS ORDERED: OXYTOCIN/NORMAL SALINE 20 UNIT/1,000 ML RTUINJ IV PRN (06:59)
[2017-10-31] MEDS ORDERED: MAGNESIUM HYDROXIDE SUSP 30 ML UDCUP PO PRN (06:59)
[2017-10-31] MEDS ORDERED: GLYCERIN/WITCH HAZEL LEAF 1 EACH MED..PAD TP PRN (06:59)
[2017-10-31] MEDS ORDERED: PROMETHAZINE HCL 25 MG SUPP.RECT PR PRN (06:59)
[2017-10-31] MEDS ORDERED: PROMETHAZINE HCL 25 MG TABLET PO PRN (06:59)
[2017-10-31] MEDS ORDERED: MEASLES,MUMPS&RUBELLA VACC/PF 0.5 ML VIAL SUBCUT PRN (06:59)
--- NOTE | 2017-10-31 08:42 | Delivery Summary ---
Del Sum A-C Datetime Report Generated by CPN: 10/31/2017 08:42 DELIVERY PERSONNEL DELIVERY PERSONNEL: [id number] Delivery Doctor:: Deidra Llamas MD Labor and Delivery Nurse:: Filippo Piper RN Labor and Delivery Nurse:: Michelle Torres RN Runway Model/TECHNICIAN AUTOMATIC: Alejandra Semar, PRODUCTION ENGINE REPAIRER MATERNAL INFORMATION Delivery Anesthesia: Epidural Medications After Delivery: Pitocin Drip 20 Units/1000ml NSS Estimated Blood Loss (ml): 200 Maternal Complications: None Provider Comments: mild dystocia relieved with McRobert's, suprapubic and delivery of posterior arm. Nursery called to delivery room within 5 min of delivery for deep suction and evaluation of secondary to poor respiratory effort and pallor. Infant taken to nursery by nursery staff. LABOR SUMMARY EDC: 11/10/2017 00:00 No. Babies in Womb: 1 Attempted: No Labor Anesthesia: Epidural LABOR INFORMATION Reason for Induction: Not Applicable Onset of Labor: 10/30/2017 23:16 Complete Dilatation: 10/31/2017 06:17 Cervical Ripening Agents: Cytotec @ 800 Oxytocin: N/A Group B Beta Strep: Positive Antibiotics # of Doses: 2 Antibiotics Time of Last Dose: 302 Name of Antibiotic Given: Penicillin Steroids Given: None Reason Steroids Not Administered: Not Applicable MEMBRANES Membranes Rupture Method: Artificial Rupture of Membranes: 10/31/2017 06:07 Length of Rupture (hr): 0.67 Amniotic Fluid Color: Clear Amniotic Fluid Amount: Moderate Amniotic Fluid Odor: Normal STAGES OF LABOR Stage 1 hr: 7 Stage 1 min: 1 Stage 2 hr: 0 Stage 2 min: 30 Stage 3 hr: 0 Stage 3 min: 3 Total Time in Labor hr: 7 Total Time in Labor min: 34 VAGINAL DELIVERY Episiotomy: None Laceration #1: None Laceration Extension #1: N/A Laceration Repair: Not Applicable Sponge Count Correct: N/A Sharps Count Correct: N/A CSECTION DELIVERY Primary Indication: N/A Secondary Indication: N/A CSection Incidence: N/A Labor: N/A Elective: N/A BABY A INFORMATION Infant Delivery Date/Time: 10/31/2017 06:47 Method of Delivery: Vaginal Born in Route : No : N/A Forceps: N/A Vacuum Extraction: N/A PRESENTATION/POSITION BABY A Presentation: Cephalic Cephalic Presentation: Vertex Vertex Position: Left Occipital Anterior Breech Presentation: N/A PLACENTA INFORMATION BABY A Placenta Delivery Time : 10/31/2017 06:50 Placenta Method of Delivery: Spontaneous Placenta Status: Delivered SCORES BABY A Heart Rate 1 min: >100 bpm Resp Effort 1 min: Slow, Irregular Reflex Irritability 1 min: Grimace Muscle Tone 1 min: Flaccid Color 1 min: Blue/Pale Resuscitation Effort 1 min: Tactile Stimulation SCORE 1 MIN: 4 Resuscitation Effort 5 min: Tactile Stimulation; Oxygen; PPV/NCPAP INFORMATION BABY A Gestational Age at Delivery: 38.4 Gestational Status: Early Term- 37- 38.6 Weeks Outcome : Liveborn Infant Condition : Stable Infant Sex: Female IDENTIFICATION BABY A Infant Verification Date/Time: 10/31/2017 06:54 ID Band Number: [id number] Mother's Name Verified: Yes RN Verifying Infant: Jaspere RN Additional Verifying Personnel: Melissa RN WEIGHT/LENGTH BABY A Birthweight (gm): 3720 Infant Weight (lb): 8 Weight (oz): 3 Infant Length (in): 21.50 Infant Length (cm): 54.61 CORD INFORMATION BABY A No. Cord Vessels: 3 Nuchal Cord : N/A Cord Blood Taken: Yes-For Eval (Mom's Blood Type - or O+) Suction: Mouth; Nose; Pharynx ASSESSMENT BABY A Infant Complications: Decreased Variability Physical Findings at Delivery: Extra Digit(s) Physical Findings- Other: Poor respiratory effort Infant Respirations: Nasal Flaring Skin to Skin: No Skin to Skin Time (min): 0 [place]/ALS Called : No Care By: Nicole Torres RN and Kathryn Amato RN Transferred To: [facility] BABY B INFORMATION : N/A SIGNATURES Signature: with User ID: [email or web address]
--- NOTE | 2017-10-31 09:13 | Admission Physical ---
Datetime Report Generated by CPN: 10/31/2017 09:12 CURRENT ADMISSION Chief Complaint: Uterine Contractions Indication for Induction: Not Applicable Indication for Induction: Term, Intrauterine ; Active Labor Admit Plan: Admit to Unit; Initiate Labor Protocol ALLERGIES Medication Allergies: No Medication Allergies: latex- hives (10/30/2017); walnut (10/30/2017) Medication Allergies: latex (10/25/2017); walnut (10/29/2017) Medication Allergies: latex (10/25/2017) Medication Allergies: latex (09/13/2017) Medication Allergies: latex (05/11/2017) Medication Allergies: latex (04/06/2017) Medication Allergies: No Known Allergies (03/14/2017) Latex: Latex Allergies Food Allergies: Walnuts Environmental Allergies: None OBSTETRICAL HISTORY EDC: 11/10/2017 00:00 : 3 Para: 2 Term: 2 : 0 SAB: 0 IAB: 0 Ectopic: 0 Livin Cesareans: 0 VBACs: 0 Multiple Births: 0 Gestational Diabetes: No Rh Sensitization: No Incompetent Cervix: No MATTHEW: No Infertility: No ART Treatment: No Uterine Anomaly: No IUGR: No Hx Previous C/S: No Macrosomia: No Hx Loss/Stillborn: No PIH: No Hx : No Placenta Previa/Abruption: No Depression/PP Depression: Yes PTL/PROM: No Post Hemorrhage: No Current Procedures: Ultrasound Obstetrical History Comments: G1 - 2012, , Girl 39 weeks G2 - 2015, , Girl 41 weeks G3 - Current SEE RECORDS Alcohol: No Marijuana : No Cocaine: No Other Illicit Drugs: No Cigarettes: Former Smoker. 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 Heart Disease: No Hosp/Surgery: No Autoimmune Disorder: No Anesthetic Complications: No Kidney Disease: No Abnormal Pap Smear: No Neuro/Epilepsy: No Psychiatric Disorders: No Other Medical Diseases: No Hepatitis/Liver Disease: No Significant Family History: No Varicosities/Phlebitis: No Trauma/Violence : No Thyroid Dysfunction: No Medical History Comments: not taking zoloft INFECTIOUS HISTORY Gonorrhea: No Genital Herpes: No Chlamydia: Yes Tuberculosis: No Syphilis: No Hepatitis: No HIV/AIDS Exposure: No Rash or Viral Illness: No HPV: No Infectious History Comments: Chlamydia 2012 PHYSICAL EXAM General: Normal HEENT: Normal Neurologic: Normal Thyroid: Normal Heart: Normal Lungs: Normal Breast: Normal Back: Normal Abdomen: Normal Genitourinary Exam: Normal Extremities: Normal DTRs: Normal Pelvic Type: Adequate Vital Signs: Reviewed; Within Normal Limits VAGINAL EXAM Dilatation: 7 Effacement: 90 Station: -1 MEMBRANES Pooling: Negative Membranes: Intact FETUS A EGA: 38.4 Monitoring: External US FHR- Baseline: 155 Variability: Minimal - Undetectable to <=5bpm Accelerations: Absent Decelerations: None FHR Category: Category II Estimated Weight (gm): 3500 Presentation: Vertex PLANS FOR LABOR AND DELIVERY Labor and Delivery: None Pain Management: Epidural Feeding Preference: Breast Benefit of Breast Feed Discussed: Yes Circumcision: N/A INFORMED CONSENT Signature: with User ID: [email or web address]
[2017-10-31] MEDS: PRENATAL VITAMIN W DHA CAPSULE PO SCH (09:56)
[2017-10-31] MEDS: FERROUS SULFATE 325 MG TABLET PO SCH ×2 (09:56→17:59)
[2017-10-31] MEDS: FAMOTIDINE 20 MG TABLET PO SCH ×2 (09:56→21:38)
[2017-10-31] MEDS: DOCUSATE SODIUM 100 MG CAPSULE PO SCH ×2 (09:56→17:58)
[2017-10-31] MEDS: SENNOSIDES/DOCUSATE 8.6-50 MG 1 EACH TABLET PO SCH (09:56)
[2017-10-31] MEDS: IBUPROFEN 800 MG TABLET PO SCH ×2 (13:50→21:39)
[2017-11-01] MEDS: IBUPROFEN 800 MG TABLET PO SCH ×3 (06:32→21:36)
[2017-11-01 07:40] LABS: HEMATOCRIT 33.4 % (36.0-47.0); MEAN CORPUSCULAR HEMOGLOBIN 29.7 pg (27.0-33.4); MEAN CORPUSCULAR VOLUME 90 fl (80-97); PLATELET COUNT 124 10^3/uL (150-450); RED BLOOD COUNT 3.71 10^6/uL (3.72-5.28); RED CELL DISTRIBUTION WIDTH 14.1 % (11.5-14.0); WHITE BLOOD COUNT 14.8 10^3/uL (4.0-10.5)
[2017-11-01] MEDS: PRENATAL VITAMIN W DHA CAPSULE PO SCH (09:17)
[2017-11-01] MEDS: SENNOSIDES/DOCUSATE 8.6-50 MG 1 EACH TABLET PO SCH (09:17)
[2017-11-01] MEDS: FERROUS SULFATE 325 MG TABLET PO SCH ×2 (09:17→18:51)
[2017-11-01] MEDS: DOCUSATE SODIUM 100 MG CAPSULE PO SCH ×2 (09:17→18:51)
[2017-11-01] MEDS: FAMOTIDINE 20 MG TABLET PO SCH ×2 (09:18→21:35)
--- NOTE | 2017-11-01 11:51 | PDOC PROGRESS REPORT ---
Subjective-OB Subjective: Post Delivery Day:1 27 year old G3 now P3 s/p ppd1. Ambulating and voiding without difficulty. Baby in NICU. Denies any needs at this time Physical Exam (OB) Vital Signs: Temp Pulse Resp BP Pulse Ox 97.9 F 63 15 108/65 100 11/01/17 07:43 11/01/17 07:43 11/01/17 07:43 11/01/17 07:43 11/01/17 07:43 Intake & Output 10/31/17 11/01/17 11/02/17 06:59 06:59 06:59 Intake Total 300 Balance 300 Weight 85.9 kg - General General Appearance: Appears well In distress: None - PIH/Pre-Eclampsia DTR's: 2 + Clonus: Negative Headache: Absent Epigastric Pain: No Visual Changes: No - Episiotomy/Laceration Site Condition: N/A - Lochia Lochia Amount: Scant < 10 ml Lochia Color: Rubra/Red - Abdomen Description: Soft Hernia Present: No Fundal Description: Firm, Midline Fundal Height: u/u - u/2 - Respiratory Respiratory Status: No respiratory distress - Extremities Upper extremity: Normal inspection Lower extremities: Normal inspection - Neurological Cognition: Normal Orientation: AAOx4 - Psychological Associated symptoms: Normal affect, Normal mood Objective-Diagnostic Laboratory: 11/01/17 07:26 11/01/17 07:26 WBC 14.8 H RBC 3.71 L Hgb 11.0 L Hct 33.4 L MCV 90 MCH 29.7 MCHC 33.0 RDW 14.1 H Plt Count 124 L Assessment and Plan(PN) - Assessment and Plan (1) Vaginal delivery Is this a current diagnosis for this admission?: Yes Plan: routine pp care (2) GBS carrier Is this a current diagnosis for this admission?: Yes Plan: received 2 doses of antibiotics in labor - Time Spent with Patient Time with patient: Less than 15 minutes Medications reviewed and adjusted accordingly: Yes - Disposition Anticipated Discharge: Home Within: within 24 hours
[2017-11-02] MEDS: IBUPROFEN 800 MG TABLET PO SCH (05:19)
--- NOTE | 2017-11-02 08:54 | PDOC PROGRESS REPORT ---
Subjective-OB Subjective: Post Delivery Day: 27 year old. Denies any needs at this time. Ready for discharge. Physical Exam (OB) Vital Signs: Temp Pulse Resp BP Pulse Ox 98.1 F 80 18 119/71 100 11/01/17 21:11 11/01/17 21:11 11/01/17 21:11 11/01/17 21:11 11/01/17 21:11 Intake & Output 11/01/17 11/02/17 11/03/17 06:59 06:59 06:59 Intake Total 300 Balance 300 - PIH/Pre-Eclampsia DTR's: 2 + Clonus: Negative Headache: Absent Epigastric Pain: No Visual Changes: No - Lochia Lochia Amount: Scant < 10 ml Lochia Color: Rubra/Red - Abdomen Description: Soft, Round Hernia Present: No Bowel Sounds: Normoactive Flatus Presence: Present Stool: Yes Fundal Description: Firm Fundal Height: u/u - u/2 Objective-Diagnostic Laboratory: 11/01/17 07:26 Assessment and Plan(PN) - Time Spent with Patient Medications reviewed and adjusted accordingly: Yes - Disposition Anticipated Discharge: Home
[2017-11-02 08:55] VITALS: BP 97/74
--- NOTE | 2017-11-02 08:59 | PDOC DISCHARGE SUMMARY ---
Final Diagnosis Discharge Date: 11/02/17 - Final Diagnosis (1) GBS carrier Is this a current diagnosis for this admission?: Yes (2) Is this a current diagnosis for this admission?: Yes (3) Vaginal delivery Is this a current diagnosis for this admission?: Yes Discharge Data - Discharge Medication Home Medications: No Home Medications 09/13/17 Gestational Age: 38.4 wks Reason(s) for Admission: Onset of Labor Procedures: Ultrasound Intrapartum Procedure(s): Spontaneous Vaginal Delivery - Data Baby 1 Female at 1 minute: 4 Weight: 3.714 kg Home with Mother: No Complications: Yes - Respiratory infection-on antibiotics - Diagnosis Test Laboratory: Temp Pulse Resp BP Pulse Ox 97.9 F 79 16 97/74 L 100 11/02/17 07:41 11/02/17 07:41 11/02/17 07:41 11/02/17 07:41 11/02/17 07:41 10/30/17 10/30/17 11/01/17 22:10 23:45 07:26 RBC 4.23 3.71 L Hgb 12.6 11.0 L Hct 37.9 33.4 L Urine Opiates Screen NEGATIVE - Discharge information/Instructions Discharge Activity: Activity As Tolerated, Balance Activity w/Rest, Pelvic Rest , Slowly Increase Activity, No tub bath Discharge Diet: Regular Disposition: HOME, SELF-CARE Follow up with: [facility] in: 4, Weeks
[2017-11-02] MEDS: PRENATAL VITAMIN W DHA CAPSULE PO SCH (10:00)
[2017-11-02] MEDS: SENNOSIDES/DOCUSATE 8.6-50 MG 1 EACH TABLET PO SCH (10:01)
[2017-11-02] MEDS: FERROUS SULFATE 325 MG TABLET PO SCH (10:01)
[2017-11-02] MEDS: DOCUSATE SODIUM 100 MG CAPSULE PO SCH (10:01)
[2017-11-02] MEDS: FAMOTIDINE 20 MG TABLET PO SCH (10:02)
== END 2017-11-02 15:13 | disposition home or self-care (01) | DRG 775 ==
LOC: LC 21:52 → LR 23:31 → 2N 10-31 09:09
PROVIDERS: ADMIT Obstetrics & Gynecology; ATTEND Obstetrics & Gynecology
PROC: 10E0XZZ Delivery of Products of Conception, External Approach (ICD-10-PCS; principal; 2017-10-31)
PROC: 4A1HXCZ Monitoring of Products of Conception, Cardiac Rate, External Approach (ICD-10-PCS; 2017-10-31)
DX: O66.0 Obstructed labor due to shoulder dystocia (principal); O99.824 Streptococcus B carrier state complicating childbirth; O76 Abnormality in fetal heart rate and rhythm complicating labor and delivery; Z87.891 Personal history of nicotine dependence; Z37.0 Single live birth
CPT/HCPCS: 36415; 80307; 81005; 85025; 85027; 86592; 86850; 86900; 86901; 94760; J2540; J2590; J3490

== ENCOUNTER 2018-03-06 17:54 | Emergency (ER) | payer BC, MEDICAID ==
[2018-03-06 18:03] VITALS: BP 130/66
[2018-03-06] MEDS ORDERED: LIDOCAINE 2% JELLY 5 ML TUBE TOP ONE (18:50)
--- NOTE | 2018-03-06 18:55 | ER Document Report ---
HPI - HPI Pain Level: 5 Context: Patient is a 28-year-old female presents emergency department the chief complaint of rectal pain. Patient states that she had her tonsils out on February 23 and has been taking hydrocodone for pain. Patient states that she has been taking Colace but has not had a bowel movement for the past 10 days. Patient states that she now has rectal pain whenever she tries to go but she denies any bleeding. She states that she is concerned she is a hemorrhoid. She states that her discomfort is at the 3 o'clock position of her anus. She denies any active bleeding. She has not taken anything [id number] for constipation - REPRODUCTIVE Reproductive: DENIES: : Past Medical History - Social History Smoking Status: Unknown if Ever Smoked Family History: Reviewed & Not Pertinent Patient has suicidal ideation: No Patient has homicidal ideation: No Renal/ Medical History: Denies: Hx Peritoneal Dialysis Psychiatric Medical History: Reports: Hx Attention Deficit Hyperactivity Disorder Traumatic Medical History: Reports: Hx Fractures Past Surgical History: Reports: Hx Oral Surgery - Immunizations Hx Diphtheria, Pertussis, Tetanus Vaccination: Yes Vertical Provider Document - CONSTITUTIONAL Agree With Documented VS: Yes Notes: PHYSICAL EXAM GENERAL: Alert, interacts well. HEAD: Normocephalic, atraumatic. EYES: Pupils equal, round, and reactive to light. Extraocular movements intact. ENT: Oral mucosa moist, tongue midline. NECK: Full range of motion. Supple. Trachea midline. ABDOMEN: Soft, nondistended, nontender. No guarding, rebound, or rigidity.. Bowel sounds present in all 4 quadrants. Rectal: Normal inspection without evidence of external hemorrhoids. No evidence of external fissure. Focal tenderness at 3:00 without any fluctuance and no internal pain to palpation. NEUROLOGICAL: Alert and oriented x4. Normal speech. PSYCH: Normal affect, normal mood. SKIN: Warm, dry, normal turgor. No rashes or lesions noted. - INFECTION CONTROL TRAVEL OUTSIDE OF THE [place] IN LAST 30 DAYS: No Course - Re-evaluation Re-evalutation: 03/06/18 18:52 Patient is a 28-year-old female who presents emergency room with chief complaint of constipation. Patient is in no acute distress, hemodynamically stable, and afebrile. Patient's belly exam benign without any concerns for peritonitis. Soft without any focal tenderness. No concerns for obstruction given patient tolerating p.o. without any difficulty no evidence of distention. Educated patient for [id number] management of constipation and will send home with topical jelly taking for rectal discomfort. Given strict return precautions and stable for discharge - Vital Signs Vital signs: Temp Pulse Resp BP Pulse Ox 99.0 F 109 H 16 130/66 H 96 03/06/18 18:00 03/06/18 18:00 03/06/18 18:00 03/06/18 18:00 03/06/18 18:00 Discharge - Discharge Clinical Impression: Constipation Qualifiers: Constipation type: unspecified constipation type Qualified Code(s): K59.00 - Constipation, unspecified Condition: Good Disposition: HOME, SELF-CARE Additional Instructions: ABDOMINAL PAIN: There are many causes of abdominal pain. Pain can mean a serious problem requiring surgery (such as appendicitis). It can also be an innocent problem that goes away on its own (such as a viral infection). Often, time must pass to determine the cause of pain. The physician does not feel that hospitalization is necessary, at present. Things may change within the next 24 hours. Call the doctor or come back for re- examination if any problems occur, such as: (1) Pain that becomes more severe, steady, or becomes concentrated in one specific area. Also, pain that is more severe with movement or coughing. (2) Vomiting that persists or becomes more frequent. (3) Blood in the vomitus, urine, or bowel movements. Blood in the stool may have a tarry or black appearance. (4) Shaking chills or fever greater than 100 degrees F. (5) The abdomen becomes more distended or swollen. (6) Bowel movements cease. (7) Failure to improve as expected. NORMAL EXAM AND WORKUP: At this time, your examination and workup show no significant abnormality. No significant abnormal physical findings are noted. All laboratory, EKG, and imaging (x-ray, CT scans, ultrasound) studies that were ordered show no significant abnormality. Although your examination and all studies that were ordered showed no significant abnormal finding, there are no examinations and no studies that are 100% accurate. There is always the possibility that some abnormality could exist and not be detected with physical examination or within the limits and capabilities of laboratory and other studies. You should return or follow up as you were instructed on your visit today for further evaluation if your symptoms do not resolve. CONSTIPATION: Constipation is a common problem. It is especially likely as you get older. Constipation is a common cause of abdominal pain, but sometimes causes no symptoms at all. Causes of constipation include certain medications, dehydration, diets, inactivity, and low-fiber intake. Rarely, it can be a symptom of underlying disease. The physician has evaluated you for this. Avoid constipation by eating a diet high in fiber, fruits, and vegetables. Drink plenty of liquids. Get regular exercise. If possible, avoid constipating medicines like narcotic pain medication. Some vitamin tablets can cause constipation. Stool softeners may be needed for difficult cases. An excellent stool softener is Konsyl which is available at [employer], and [employer]. Just add a teaspoon to a glass of pineapple or orange juice daily or twice a day if needed. Laxatives are useful for occasional constipation. You should use them only when necessary. Too-frequent use can make your bowels dependent on them. Some over the counter laxatives available without prescription are: Milk of Magnesia, 1-2 tablespoons twice a day Dulcolax, 5 mg pill or 10 mg suppository. Citrate of Magnesia, 4-5 ounces a day for a day or two For acute constipation, Fleet's Enemas and Dulcolax suppositories are helpful. Chronic, intermodal dispatcher use of laxatives or enemas is not a good idea. Your bowel may become dependant on them. You do not need to have a bowel movement every day. Many people do fine with a bowel movement every three or four days. You should call your doctor or return for re-evaluation if you pass blood in the stool, or if you develop fever or increasing abdominal pain. BULK LAXATIVES: Bulk laxatives make the stool softer and bulkier. They're useful for preventing constipation. You can choose between psyllium, methylcellulose, and polycarbophil. They are available without a prescription. Psyllium brand names include Konsyl, Metamucil, Perdiem, Effer-Syllium and Hydrocil. It's available as powder, flavored drink powder, or chewable. The usual dose of psyllium powder is one heaping teaspoon in water each morning, increasing to twice a day if needed. [place] juice can disguise the slightly grainy texture. Methylcellulose is marketed as Citrucel and other brands. The average dose is two grams in a cup of water one to three times a day. Polycarbophil is marketed as Fiber-Con. Take two tablets with a cup of water one to three times a day. LAXATIVE: A laxative agent has been prescribed for your condition. This should result in passage of stool within 12 hours. Some mild intestinal cramping is common as the hard stool begins to move. You may have loose or runny stools for a short time. Contact your doctor if there is severe cramping, vomiting, or passage of blood. Return for further care if this medicine fails to improve your condition. FOLLOW-UP CARE: If you have been referred to a physician for follow-up care, call the physician s office for an appointment as you were instructed or within the next two days. If you experience worsening or a significant change in your symptoms, notify the physician immediately or return to the Emergency Department at any time for re-evaluation. Prescriptions: Lidocaine [Topicaine 5] 30 gm TP Q4HP PRN #1 gel..gram. PRN Reason: Referrals: DELFINO MCKEON MD [ACTIVE STAFF] - Follow up as needed
== END 2018-03-06 19:07 | disposition home or self-care (01) ==
LOC: ER 17:54
DX: K59.00 Constipation, unspecified (principal); K62.89 Other specified diseases of anus and rectum
CPT/HCPCS: 99283

== ENCOUNTER 2018-07-13 12:39 | Emergency (ER) | payer BC, OTHER ==
--- NOTE | 2018-07-13 13:31 | ER Document Report ---
ED Cardiac - General Chief Complaint: Irregular Pulse Stated Complaint: IRREGULAR HEART BEAT,SHORT OF BREATH Time Seen by Provider: 07/13/18 13:15 Mode of Arrival: Ambulatory Information source: Patient Notes: 28-year-old female patient comes emergency room complaining of her heart racing and irregular since last night. She reports it occurred all night long causing chest pressure and shortness of breath. She states she had atrial fibrillation when she was 19 years old, and is on no medications. 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 She reports that her heart is still fluttering and beating irregular and fast at this time. An EKG done shows a normal sinus rhythm. She does admit to anxiety problems, states it is usually when she is driving. He also reports that she had thyroid problems in the past. She cannot elaborate on what this means. TRAVEL OUTSIDE OF THE [place] IN LAST 30 DAYS: No - Related Data Allergies/Adverse Reactions: latex Allergy (Verified 10/30/17 22:08) walnut Allergy (Verified 10/30/17 22:08) Past Medical History - General Information source: Patient - Social History Smoking Status: Current Every Day Smoker Cigarette use (# per day): Yes - 1 PPD Chew tobacco use (# tins/day): No Smoking Education Provided: No Frequency of alcohol use: Occasional Drug Abuse: None Occupation: [employer] [place] Lives with: Family Family History: Reviewed & Not Pertinent Patient has suicidal ideation: No Patient has homicidal ideation: No - Past Medical History Cardiac Medical History: Reports: Hx Atrial Fibrillation Psychiatric Medical History: Reports: Hx Anxiety, Hx Attention Deficit Hyperactivity Disorder Traumatic Medical History: Reports: Hx Fractures Past Surgical History: Reports: Hx Oral Surgery - Third molars were removed, Hx Tonsillectomy - Immunizations Hx Diphtheria, Pertussis, Tetanus Vaccination: Yes Review of Systems - Review of Systems Constitutional: No symptoms reported EENT: No symptoms reported Cardiovascular: No symptoms reported Respiratory: No symptoms reported Gastrointestinal: No symptoms reported Genitourinary: No symptoms reported Female Genitourinary: Last menstrual period - Patient is on the Depo shot Musculoskeletal: No symptoms reported Skin: No symptoms reported Hematologic/Lymphatic: No symptoms reported Neurological/Psychological: Anxiety Physical Exam - Vital signs Vitals: Temp Pulse Resp BP Pulse Ox 98.6 F 86 20 125/66 98 07/13/18 13:08 07/13/18 13:08 07/13/18 13:08 07/13/18 13:08 07/13/18 13:08 Interpretation: Normal - General General appearance: Appears well, Alert In distress: None - HEENT Head: Normocephalic, Atraumatic Eyes: Normal Pupils: PERRL - Respiratory Respiratory status: No respiratory distress Breath sounds: Normal - Cardiovascular Rhythm: Regular. No: Extrasystoles Heart sounds: Normal auscultation Murmur: No - Abdominal Inspection: Normal - Back Back: Normal - Extremities General upper extremity: Normal inspection General lower extremity: Normal inspection - Neurological Neuro grossly intact: Yes - Psychological Associated symptoms: Normal affect, Normal mood, Anxious - Patient does seem a little bit anxious Course - Re-evaluation Re-evalutation: 07/13/18 15:07 The EKG and physical exam did not show any cardiac arrhythmia. The EKG does show normal sinus rhythm. The patient did reports she was feeling the symptoms of irregular and fast heart rate during the EKG and during the physical exam. It is unlikely there was an arrhythmia that had resolved prior to evaluation given that the symptoms were present during the testing. Patient does admit to anxiety problems. She does have a d-dimer which is the upper limits of normal, and is on the Depakote shot, and is a smoker. - Vital Signs Vital signs: Temp Pulse Resp BP Pulse Ox 98.6 F 86 20 125/66 98 07/13/18 13:08 07/13/18 13:08 07/13/18 13:08 07/13/18 13:08 07/13/18 13:08 - Laboratory Result Diagrams: 07/13/18 13:30 07/13/18 13:30 Laboratory results interpreted by me: 07/13/18 07/13/18 13:30 13:30 RDW 14.4 H Magnesium 2.4 H Creatine Kinase 498 H - Diagnostic Test Radiology reviewed: Image reviewed, Reports reviewed - Chest x-ray is normal. CTA chest is normal. - EKG Interpretation by Ca EKG shows normal: Sinus rhythm, [place], Intervals, QRS Complexes. abnormal: ST-T Waves - Diffuse T abnormalities Rate: Normal - 93 Rhythm: NSR Discharge - Discharge Clinical Impression: Palpitations, Anxiety, Shortness of breath Condition: Stable Disposition: HOME, SELF-CARE Additional Instructions: Palpitations (Irregular/Rapid Heartrate) Irregular or rapid heartbeat is called "palpitation." To diagnose the cause of palpitation, we have to "catch it in the act" with an EKG. Sinus Tachycardia: This is a rapid (but NORMAL) rhythm that can be due to fever, pain, anxiety, lack of sleep, over-exertion, or drugs. Cold medications, caffeine, and diet pills are particularly likely to cause tachycardia. Usually , all that's required is rest, reassurance, and avoiding caffeine, alcohol, nicotine, and unnecessary medicines. Paroxysmal Atrial Tachycardia (PAT): This abnormally rapid heartbeat is caused by a "short circuit" in the electrical system of the heart. It is not dangerous, unless other heart disease is present. These attacks of PAT may occur occasionally for years. Medication is available for treatment. Paroxysmal Atrial Fibrillation or Atrial Flutter: This is irregular electrical activity in the upper heart chamber. These abnormal rhythms often occur with valve disease or in hearts damaged by hardening of the arteries. These rhythms usually require further testing, for example a cardiac echo. Premature Beats: Extra beats occur more commonly after caffeine, nicotine , alcohol, cold pills, diet pills. Emotional stress or fatigue also provoke them. Extra beats are only dangerous when heart disease is present. They usually need no treatment. If they're frequent, or if evidence of heart disease develops, medication can be given to suppress them. If we were unable to "catch" the palpitations on EKG, you should try to get an EKG immediately if the symptoms begin again. Contact the physician at once if you develop persistent lightheadedness, shortness of breath, chest pain , or swelling of the ankles. Anxiety The physician feels that some of your health problems are being caused by anxiety. Anxiety affects your health in many ways. Anxiety alone can cause palpitations, sweats, chest pains, abdominal pains, shortness of breath, and headaches. It contributes to ulcer disease, high blood pressure, irritable bowel syndrome, and has been shown to cause flare-ups of many other diseases. Anxiety is not a simple disorder to treat. If the anxiety is due to recent life stresses, you may simply need time to "work through" the changes. If the anxiety is due to an underlying unhappiness with yourself or due to psychiatric disturbance, professional help will be needed. Your physician can refer you for further help if needed. Anti-anxiety medication is occasionally given if the stress is acute or if you are having trouble sleeping. Chronic or frequent use of these medications is not a good idea because the body becomes reliant on it, preventing you from dealing with life's normal stresses. Your EKG today and physical exam did not show any fast or irregular heartbeat. A scan of your lungs did not show any blood clots or other explanation for your feeling short of breath. The symptoms you are having may well be due to anxiety. You should drink plenty of fluids today and get plenty of rest. Follow-up with a local medical doctor if not improving. RETURN TO THE EMERGENCY ROOM IF ANY NEW OR WORSENING SYMPTOMS. Forms: Return to Work Referrals: ALEC HUBER MD [Primary Care Provider] - Follow up as needed
[2018-07-13 13:42] LABS: ABSOLUTE EOSINOPHILS # (AUTO) 0.2 10^3/uL (0.0-0.6); ABSOLUTE LYMPHOCYTES (AUTO) 1.6 10^3/uL (0.5-4.7); ABSOLUTE MONOCYTES (AUTO) 0.4 10^3/uL (0.1-1.4); ABSOLUTE NEUT (AUTO) 5.6 10^3/uL (1.7-8.2); BASOPHILS % (AUTO) 0.5 % (0-2); EOSINOPHILS % (AUTO) 2.3 % (0-6); HEMATOCRIT 41.8 % (36.0-47.0); HEMOGLOBIN 14.6 g/dL (12.0-15.5); LYMPHOCYTES % (AUTO) 20.5 % (13-45); MEAN CORPUSCULAR HEMOGLOBIN 31.4 pg (27.0-33.4); MEAN CORPUSCULAR HGB CONC 34.8 g/dL (32.0-36.0); MEAN CORPUSCULAR VOLUME 90 fl (80-97); MONOCYTES % (AUTO) 5.5 % (3-13); PLATELET COUNT 203 10^3/uL (150-450); RED BLOOD COUNT 4.63 10^6/uL (3.72-5.28); RED CELL DISTRIBUTION WIDTH 14.4 % (11.5-14.0); SEGMENTED NEUTROPHILS % (AUTO) 71.2 % (42-78); TOTAL CELLS COUNTED % (AUTO) 100 %; WHITE BLOOD COUNT 7.9 10^3/uL (4.0-10.5)
[2018-07-13 14:01] LABS: ALANINE AMINOTRANSFERASE 48 U/L (9-52); ALBUMIN 4.3 g/dL (3.5-5.0); ALKALINE PHOSPHATASE 75 U/L (38-126); ANION GAP 11 (5-19); ASPARTATE AMINO TRANSFERASE 28 U/L (14-36); BILIRUBIN,DIRECT 0.3 mg/dL (0.0-0.4); BILIRUBIN,TOTAL 0.6 mg/dL (0.2-1.3); BLOOD UREA NITROGEN 8 mg/dL (7-20); CALCIUM 9.8 mg/dL (8.4-10.2); CARBON DIOXIDE 22 mmol/L (22-30); CHLORIDE 107 mmol/L (98-107); CREATINE KINASE 498 U/L (30-135); GLUCOSE 93 mg/dL (75-110); POTASSIUM 4.3 mmol/L (3.6-5.0); SODIUM 140.2 mmol/L (137-145); TOTAL PROTEIN 7.4 g/dL (6.3-8.2)
[2018-07-13 14:11] LABS: CREATINE KINASE MB 1.39 ng/mL (<4.55)
[2018-07-13 14:13] LABS: TROPONIN I < 0.012 ng/mL
--- NOTE | 2018-07-13 14:43 | RADIOLOGY REPORT (SQ) ---
EXAM DESCRIPTION: CHEST 2 VIEWS COMPLETED DATE/TIME: 07/13/2018 2:33 pm REASON FOR STUDY: chest pain, palpitations COMPARISON: 08/26/2011 EXAM PARAMETERS: NUMBER OF VIEWS: two views TECHNIQUE: Digital Frontal and Lateral radiographic views of the chest acquired. RADIATION DOSE: NA LIMITATIONS: none FINDINGS: LUNGS AND PLEURA: No opacities, masses or pneumothorax. No pleural effusion. MEDIASTINUM AND HILAR STRUCTURES: No masses or contour abnormalities. HEART AND VASCULAR STRUCTURES: Heart normal size. No evidence for failure. BONES: No acute findings. HARDWARE: None in the chest. OTHER: No other significant finding. IMPRESSION: NO ACUTE RADIOGRAPHIC FINDING IN THE CHEST. TECHNICAL DOCUMENTATION: JOB ID: [id number] [employer]- All Rights Reserved Reading location - IP/workstation name: [email or web address]
--- NOTE | 2018-07-13 16:03 | RADIOLOGY REPORT (SQ) ---
EXAM DESCRIPTION: CTA CHEST COMPLETED DATE/TIME: 07/13/2018 3:49 pm REASON FOR STUDY: Palpitations, SOB, Depakote shot and smoker, COMPARISON: None. TECHNIQUE: CT scan of the chest performed using helical scanning technique with dynamic intravenous contrast injection. Images reviewed with lung, soft tissue and bone windows. Reconstructed coronal and sagittal MPR images reviewed. Additional 3 dimensional post-processing performed to develop Maximal Intensity Projection images (ME P). All images stored on PACS. All CT scanners at this facility use dose modulation, iterative reconstruction, and/or weight based d osing when appropriate to reduce radiation dose to as low as reasonably achievable (ALARA). [facility]: Dose Right [facility]: CareDose [facility]: Dose Right [facility]: Teradose 4D [facility]: Reclip.It CONTRAST TYPE AND DOSE: contrast/concentration: Isovue 350.00 mg/ml; Total Contrast Delivered: 72.0 ml; Total Saline Delivered: 90.0 ml Contrast bolus optimized for the pulmonary arteries. Not diagnostic for the aorta. RENAL FUNCTION: GFR > 60. RADIATION DOSE: CT Rad equipment meets quality standard of care and radiation dose reduction techniq ues were employed. CTDIvol: 3.3 - 16.5 mGy. DLP: 569 mGy-cm. . LIMITATIONS: None. FINDINGS: LUNGS AND PLEURA: No masses, infiltrates, or pneumothorax. No pleural effusions or pleura l calcifications. AORTA AND GREAT VESSELS: No aneurysm. Contrast bolus not optimized for the aorta. HEART: No pericardial effusion. No significant coronary artery calcifications. PULMONARY ARTERIES: No emboli visualized in the main pulmonary arteries or the segmental branches. HILAR AND MEDIASTINAL STRUCTURES: No identified masses or abnormal nodes. HARDWARE: None in the chest. UPPER ABDOMEN: No significant findings. Limited exam. THYROID AND OTHER SOFT TISSUES: No masses. No adenopathy. BONES: No acute or significant finding. 3D MIPS: Confirm above findings. OTHER: No other significant finding. IMPRESSION: NORMAL CTA OF THE CHEST. NO PULMONARY EMBOLI. COMMENT: Quality ID # [id number]: Final reports with documentation of one or more dose reduction techniques (e.g., Automated exposure control, adjustment of the mA and/or kV according to patient size, use of iterative reconstruction technique) TECHNICAL DOCUMENTATION: JOB ID: [id number] [employer]- All Rights Reserved Reading location - IP/workstation name: [email or web address]
[2018-07-13 16:21] VITALS: BP 132/78
--- NOTE | 2018-07-14 19:38 | EKG REPORT ---
SEVERITY:- BORDERLINE ECG - SINUS RHYTHM BORDERLINE T ABNORMALITIES, DIFFUSE LEADS : Confirmed by: Kailee Dasilva 14-Jul-2018 19:37:55
== END 2018-07-13 16:20 | disposition home or self-care (01) ==
LOC: ER 12:39
DX: F41.9 Anxiety disorder, unspecified (principal); R00.2 Palpitations; R06.02 Shortness of breath; R07.89 Other chest pain; F17.210 Nicotine dependence, cigarettes, uncomplicated; Z91.040 Latex allergy status; Z91.018 Allergy to other foods; Z79.3 Long term (current) use of hormonal contraceptives; Z86.79 Personal history of other diseases of the circulatory system
CPT/HCPCS: 36415; 71046; 71275; 80053; 82550; 82553; 83735; 84443; 84484; 84703; 85025; 85379; 93005; 93010; 99285

== ENCOUNTER → 2018-08-07 | Outpatient (CLI) | payer BC ==
--- NOTE | 2018-08-07 16:11 | RADIOLOGY REPORT (SQ) ---
EXAM DESCRIPTION: VENOUS BILATERAL LOWER COMPLETED DATE/TIME: 08/07/2018 3:59 pm REASON FOR STUDY: PAIN IN RIGHT LEG M79.604 PAIN IN RIGHT LEG COMPARISON: None. TECHNIQUE: Dynamic and static mares scale and color images acquired of both lower extremity venous sy stems. Selected spectral images acquired with additional compression and augmentation maneuvers. Imag es stored on PACS. LIMITATIONS: None. FINDINGS: RIGHT LEG COMMON FEMORAL AND FEMORAL: Normal phasicity, compression and augmentation. No visualized echogenic m aterial on mares scale. No defects on color images. POPLITEAL: Normal compression and augmentation. No visualized echogenic material on mares scale. No de fects on color images. CALF VESSELS: Normal compression and augmentation. No visualized echogenic material on mares scale. No defects on color image. GSV AND SSV: Normal compression. No visualized echogenic material on mares scale. No defects on color images. ANY DEEP VENOUS INSUFFICIENCY: No. ANY EVIDENCE OF POPLITEAL CYST: No. OTHER: No other significant finding. LEFT LEG COMMON FEMORAL AND FEMORAL: Normal phasicity, compression and augmentation. No visualized echogenic m aterial on mares scale. No defects on color images. POPLITEAL: Normal compression and augmentation. No visualized echogenic material on mares scale. No de fects on color images. CALF VESSELS: Normal compression and augmentation. No visualized echogenic material on mares scale. No defects on color images. GSV AND SSV: Normal compression. No visualized echogenic material on mares scale. No defects on color images. ANY DEEP VENOUS INSUFFICIENCY: No. ANY EVIDENCE POPLITEAL CYST: No. OTHER: No other significant finding. IMPRESSION: NO EVIDENCE DVT OR SVT IN EITHER LEG. TECHNICAL DOCUMENTATION: JOB ID: [id number] [employer]- All Rights Reserved Reading location - IP/workstation name: [email or web address]
== END ==
LOC: SP 17:22
PROVIDERS: ATTEND Family Medicine
DX: M79.604 Pain in right leg (principal)
CPT/HCPCS: 93970